=== PATIENT | male | born 1995 | race Caucasian/White ===

== ENCOUNTER 2017-04-13 11:40 | Emergency (ER) | payer OTHER ==
[2017-04-13 11:49] VITALS: TEMP 98.2; BMI 28.2
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
[2017-04-13] MEDS ORDERED: ONDANSETRON *ODT* 4 MG TABLET SL ONE (12:20)
[2017-04-13] MEDS ORDERED: ACETAMINOPHEN 500 MG TABLET (FP) PO ONE (12:20)
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
[2017-04-13] MEDS ORDERED: ACETAMINOPHEN 325 MG TABLET (FP) ONE (13:30)
[2017-04-13] MEDS ORDERED: ONDANSETRON *ODT* 4 MG TABLET ONE (13:30)
[2017-04-13 13:46] VITALS: BP 128/78; PULSE 79
== END 2017-04-13 13:47 | disposition home or self-care (01) ==
LOC: JER 11:40
DX: G44.319 Acute post-traumatic headache, not intractable (principal); V47.6XXA Car passenger injured in collision with fixed or stationary object in traffic accident, initial encounter; Y92.414 Local residential or business street as the place of occurrence of the external cause; W22.12XA Striking against or struck by front passenger side automobile airbag, initial encounter; Y93.89 Activity, other specified; Y99.8 Other external cause status
CPT/HCPCS: 70450-TC; 99282-25

== ENCOUNTER 2018-09-28 17:05 | Emergency (ER) | payer OTHER ==
--- NOTE | 2018-09-28 17:18 | PDOC ---
Rapid Medical Evaluation Time Seen by Provider: 09/28/18 17:17 Medical Evaluation: Allergies Allergy/AdvReac Type Severity Reaction Status Date / Time No Known Allergies Allergy Verified 04/13/17 11:49 09/28/18 17:17 HPI: L ear and jaw pain x2 days no fevers PE: No acute distress ORDERS: Nothing Discharge Disposition - Diagnosis Ear pain, left - Referrals - Patient Instructions - Post Discharge Activity
[2018-09-28 17:20] VITALS: BP 126/77; PULSE 108; TEMP 99.5; BMI 36.3
[2018-09-28] MEDS ORDERED: AMOX TR/POT CLAV 875MG/125MG TABLETS (FP) PO ONE (17:33)
--- NOTE | 2018-09-28 17:33 | PDOC ---
History of Present Illness - General Chief Complaint: Ear Problem Stated Complaint: LEFT EAR PAIN Time Seen by Provider: 09/28/18 17:17 History Source: Patient Exam Limitations: No Limitations Past History - Travel Traveled outside of the country in the last 30 days: No Close contact w/someone who was outside of country & ill: No - Past Medical History Allergies/Adverse Reactions: Allergies Allergy/AdvReac Type Severity Reaction Status Date / Time No Known Allergies Allergy Verified 09/28/18 17:18 Home Medications: Ambulatory Orders Amoxicillin/Potassium Clav [Augmentin 875-125 Tablet] 1 each PO BID 10 Days #20 tablet 09/28/18 NK [No Known Home Medication] 09/28/18 Neomycin/Polymyxn/Hc [Cortisporin Otic Solution -] 2 drop QID #1 bottle 09/28 COPD: No - Immunization History Immunization Up to Date: Yes - Suicide/Smoking/Psychosocial Hx Smoking History: Never smoked Hx Alcohol Use: No Drug/Substance Use Hx: No Review of Systems - Review of Systems Able to Perform ROS?: Yes Constitutional: No: Chills, Fever HEENTM: Yes: Ear Pain Respiratory: No: Cough Cardiac (ROS): No: Chest Pain *Physical Exam - Vital Signs Last Vital Signs Temp Pulse Resp BP Pulse Ox 99.5 F 108 H 17 126/77 100 09/28/18 17:18 09/28/18 17:18 09/28/18 17:18 09/28/18 17:18 09/28/18 17:18 - Physical Exam Comments: Patient is a 23-year-old male who states that over the past 2 days he has had left ear pain. Patient denies nasal discharge or excessive water exposure. Patient denies dental discomfort. Patient describes the pain as a throb and rates at a 5 out of 10. Patient denies any aggravating or relieving factors. 09/28/18 17:29 09/28/18 17:34 Constitutional: VS stated, pt appears in no apparent distress; sitting in chair. Skin: Warm and dry. Intact, no lesions or excoriations. Head: Normocephalic; atraumatic Eyes: conjunctiva pink without injection or discharge. Ears: No tenderness present. Canals on the left is injected. TM clear on right, unable to be visualized on the left Nose: Patent, mucosa pink. No drainage. Throat: Oropharynx with pink and moist mucosa. Dentition good. No pharyngeal edema; erythema or exudate. Tongue normal, no fasciculations. Airway Patent. Hypoglossal area is soft. Uvula is midline. No trismus. Lungs: Bilateral breath sounds clear upon auscultation. No adventitious breath sounds. Heart: Tachy, due to low grade fever. Musculoskeletal: Full ROM of TMJ without pain, tenderness, or crepitus Neurologic: Awake, alert. Conversation fluent. General Appearance: Yes: Nourished Medical Decision Making - Medical Decision Making 09/28/18 17:31 Pt given first dose of Augmentin in ED, no signs of allergic reaction *DC/Admit/Observation/Transfer Diagnosis at time of Disposition: Ear pain, left - Discharge Dispostion Disposition: HOME Condition at time of disposition: Good - Prescriptions Prescriptions: Amoxicillin/Potassium Clav [Augmentin 875-125 Tablet] 1 each PO BID 10 Days #20 tablet Neomycin/Polymyxn/Hc [Cortisporin Otic Solution -] 2 drop QID #1 bottle - Referrals - Patient Instructions Printed Discharge Instructions: DI for Otitis Media (Middle Ear Infection)- Child Additional Instructions: Use antibiotic drops as directed and oral abx. Follow up with your PCP - Post Discharge Activity Forms/Work/School Notes: Back to Work
[2018-09-28] MEDS ORDERED: AMOX TR/POT CLAV 875MG/125MG TABLETS (FP) ONE (17:39)
== END 2018-09-28 17:44 | disposition home or self-care (01) ==
LOC: JERFT 17:05
DX: H66.92 Otitis media, unspecified, left ear (principal)
CPT/HCPCS: 99281-25